=== PATIENT | male | born 1965 | race Caucasian/White ===

== ENCOUNTER → 2024-02-17 08:00 | Outpatient (REF) | payer OTHER, SELFPAY | LOC: RCS 08:00 | PROVIDERS: ATTENDING PHYSICIAN Internal Medicine Interventional Cardiology; FAMILY PHYSICIAN Internal Medicine | DX: I25.5 Ischemic cardiomyopathy (principal) | CPT/HCPCS: 93306 ==

== ENCOUNTER → 2025-06-06 07:42 | Outpatient (REF) | payer OTHER, SELFPAY | LOC: HWRCS 07:42 | PROVIDERS: ATTENDING PHYSICIAN Internal Medicine Interventional Cardiology; FAMILY PHYSICIAN Internal Medicine | DX: I49.01 Ventricular fibrillation (principal); E78.2 Mixed hyperlipidemia; I21.02 ST elevation (STEMI) myocardial infarction involving left anterior descending coronary artery; R68.84 Jaw pain | CPT/HCPCS: 78452; 93017; A9500 ==

== ENCOUNTER → 2025-06-09 07:09 | Outpatient (REF) | payer OTHER, SELFPAY | LOC: HWRCS 07:09 | PROVIDERS: ATTENDING PHYSICIAN Internal Medicine Interventional Cardiology; FAMILY PHYSICIAN Internal Medicine | DX: I49.01 Ventricular fibrillation (principal); E78.2 Mixed hyperlipidemia; I21.02 ST elevation (STEMI) myocardial infarction involving left anterior descending coronary artery; R68.84 Jaw pain | CPT/HCPCS: 93306 ==